=== PATIENT | male | born 1970 | race Caucasian/White ===

== ENCOUNTER 2018-12-17 16:13 | Inpatient (IN) ==
[2018-12-17] MEDS ORDERED: ASPIRIN PO ONE (16:27)
[2018-12-17] MEDS ORDERED: ASPIRIN PR ONE (16:27)
[2018-12-17 16:54] LABS: BASO# 0.02 X1000 (0.0-0.2); BASO% 0.1 % (0.0-0.8); HEMATOCRIT 43.3 % (42.0-52.0); HEMOGLOBIN 15.6 g/dL (14.0-18.0); IMM GRAN# 0.06 X1000 (0.0-0.04); IMM GRAN% 0.3 % (0.0-0.5); LYMPH% 5.4 % (20.5-51.1); MCH 29.7 PG (27-31); MCV 82.5 FL (81-99); MONO# 1.15 X1000 (0.11-0.59); MONO% 6.2 % (1.7-9.3); MPV 9.4 FL (7.4-10.4); PLT 224 X1000 (130-400); RBC 5.25 XMIL (4.7-6.1); RDW 12.2 % (11.5-14.5); WBC 18.63 X1000 (4.8-10.8)
[2018-12-17 17:27] LABS: ALBUMIN 4.5 g/dL (3.5-5.0); CALCIUM 9.2 mg/dL (8.8-10.2); CREATININE 1.5 mg/dL (0.7-1.2); POTASSIUM 4.7 mmol/L (3.5-5.1); TOTAL BILIRUBIN 0.4 mg/dL (0.20-1.00); TOTAL PROTEIN 7.3 g/dL (6.3-8.3)
[2018-12-17 17:42] LABS: CK INDEX 1.3 (0.0-2.5); CK-MB 5.03 ng/mL (0.0-5.0)
[2018-12-17 17:48] LABS: PROTIME 13.7 Seconds (11.0-16.0); PTT 26.4 Seconds (22.3-41.8)
[2018-12-17] MEDS ORDERED: NS 1,000 ML IV ONE (17:52)
--- NOTE | 2018-12-17 17:55 | Diag Imaging Result Doc PS360 ---
EXAM: CHEST-2 VIEWS HISTORY: near syncopy TECHNIQUE: Chest two views COMPARISON: None. FINDINGS: The lungs are well expanded. The heart is not enlarged. The vessels are not distended. There are no infiltrates. No pleural effusions. IMPRESSION: No acute abnormality. Electronically signed by Silvio Iraheta 12/17/2018 5:53 PM
--- NOTE | 2018-12-17 18:33 | EKG Report ---
Test Performed on : 12/17/2018 5:49:41 PM Test Reason : near syncopy Blood Pressure : / mmHG Vent. Rate : 069 BPM Atrial Rate : 069 BPM P-R Int : 136 ms QRS Dur : 092 ms QT Int : 390 ms P-R-T Axes : 049 051 048 degrees QTc Int : 417 ms Normal sinus rhythm. Normal ECG No previous ECGs available Unconfirmed Result
[2018-12-17 18:39] LABS: BILIRUBIN URINE NEGATIVE (NEGATIVE); BLOOD URINE 4+ (NEGATIVE); GLUCOSE URINE NEGATIVE (NEGATIVE); KETONE URINE TRACE mg/dL (NEGATIVE); LEUKOCYTES URINE TRACE (NEGATIVE); NITRITE URINE NEGATIVE (NEGATIVE); PROTEIN URINE TRACE mg/dL (NEGATIVE); SP GRAVITY URINE 1.015; UROBILINOGEN URINE NORMAL
[2018-12-17 18:40] LABS: CLARITY CLEAR (CLEAR); COLOR YELLOW
[2018-12-17 18:55] LABS: URINE WBC <10 /HPF (<10)
[2018-12-17 18:56] LABS: URINE BACTERIA NEGATIVE /HFP; URINE EPITHELIAL CELLS <10 /HPF (<10); URINE SOURCE CLEAN CATCH
[2018-12-17] MEDS ORDERED: AMBIEN PO PRN (19:01)
[2018-12-17] MEDS ORDERED: ZOFRAN IV PRN (19:01)
[2018-12-17 22:09] LABS: CK INDEX 2.2 (0.0-2.5); CK-MB 31.96 ng/mL (0.0-5.0)
--- NOTE | 2018-12-17 23:26 | HISTORY AND PHYSICAL ---
CHIEF COMPLAINT: Syncope. HISTORY OF PRESENT ILLNESS: The patient is a very pleasant 48-year-old male who presented to the emergency department after having a syncopal episode earlier today. He was outside, apparently mowing the yard. His went to check on him and found him lying on the ground. Notes that it took a few seconds to get him to awaken. He was oriented afterwards, but had decreased energy. He was lightheaded. Interestingly, however, he has had 2 episodes in the past month or so at that were similar, although not as severe, the last of which he was at work. He was sitting at his computer, felt a little dizzy and lightheaded. He felt as though he was having difficulty concentrating. He did not lose his balance nor fall out of the chair. ALLERGIES: Penicillin. MEDICATIONS: No current prescription medications. REVIEW OF SYSTEMS: As noted above. Otherwise denies any focal numbness, tingling or weakness in his extremities. Denies any dysuria, frequency, urgency, hesitancy, polyuria or polydipsia. Denies any skin rashes, weight loss or weight gain. Denies any chest pain with the episodes. Denies any loss of bowel or bladder with the episodes. Denies any shaking and jerking with the episodes. PAST MEDICAL HISTORY: No chronic active medical problems. FAMILY HISTORY: Noncontributory. No family history of syncope. SOCIAL HISTORY: The patient is . He is employed. He does not smoke nor drink. PHYSICAL EXAMINATION: VITAL SIGNS: Temperature 98.3 degrees, pulse 69, respiratory rate 18, BP 126/83, saturation 99% on room air. GENERAL: The patient is awake, alert, very pleasant. He is in no distress. HEENT: Normocephalic. NECK: Supple. CARDIOVASCULAR: Regular rate. No murmurs. CHEST: Clear, nonlabored. ABDOMEN: Soft, nondistended, nontender. EXTREMITIES: Moves all extremities. NEUROLOGIC: No focal neurological changes. SKIN: Warm and dry. No rash. LABORATORY DATA: Labs reviewed. EKG normal. ASSESSMENT: Syncopal episode of undetermined origin. PLAN: We will admit the patient to the hospital, place him on telemetry and continue to follow. We will check echocardiogram and carotids. We expect these to be normal. If so, we will discharge him home on Holter monitor. cc: Kodi Leggett MD
[2018-12-18 08:24] LABS: CK INDEX 2.3 (0.0-2.5); CK-MB 59.98 ng/mL (0.0-5.0)
[2018-12-18 08:28] LABS: HEMATOCRIT 42.4 % (42.0-52.0); HEMOGLOBIN 15.2 g/dL (14.0-18.0); MCH 29.7 PG (27-31); MCHC 35.8 g/dL (33-37); MPV 9.9 FL (7.4-10.4); RBC 5.11 XMIL (4.7-6.1); WBC 13.84 X1000 (4.8-10.8)
[2018-12-18 08:29] LABS: RDW 12.4 % (11.5-14.5)
[2018-12-18 08:39] LABS: AGAP 10; ALKALINE PHOSPHATASE 77 U/L (32-122); BUN 21 mg/dL (8-22); CALCIUM 8.7 mg/dL (8.8-10.2); CHLORIDE 106 mmol/L (98-107); COSMO 280; ESTIMATED GFR > 60; GLUCOSE 114 mg/dL (70-104); GOT 72 U/L (10-34); GPT 41 U/L (10-44); SODIUM 138 mmol/L (136-145); TCO2 22 mmol/L (25-35); TOTAL PROTEIN 6.2 g/dL (6.3-8.3)
[2018-12-18 10:09] LABS: HEMATOCRIT 42.4 % (42.0-52.0); HEMOGLOBIN 14.9 g/dL (14.0-18.0); MCH 29.5 PG (27-31); MCHC 35.1 g/dL (33-37); MPV 9.5 FL (7.4-10.4); RBC 5.05 XMIL (4.7-6.1); RDW 12.5 % (11.5-14.5); WBC 10.86 X1000 (4.8-10.8)
[2018-12-18 10:53] LABS: AGAP 9; ALBUMIN 3.9 g/dL (3.5-5.0); ALKALINE PHOSPHATASE 83 U/L (32-122); BUN 19 mg/dL (8-22); CALCIUM 8.6 mg/dL (8.8-10.2); CHLORIDE 106 mmol/L (98-107); COSMO 280; CREATININE 0.9 mg/dL (0.7-1.2); ESTIMATED GFR > 60; GLUCOSE 110 mg/dL (70-104); GOT 84 U/L (10-34); GPT 51 U/L (10-44); POTASSIUM 4.5 mmol/L (3.5-5.1); SODIUM 139 mmol/L (136-145); TCO2 25 mmol/L (25-35); TOTAL PROTEIN 6.6 g/dL (6.3-8.3)
[2018-12-18 11:11] LABS: CK INDEX 2.3 (0.0-2.5); CK-MB 53.29 ng/mL (0.0-5.0)
[2018-12-18] MEDS: SODIUM BICARBONATE 8.4% 150 MEQ in D5W 1,000 ML IV SCH (17:37)
[2018-12-18 18:21] LABS: CK INDEX 2.4 (0.0-2.5); CK-MB 42.09 ng/mL (0.0-5.0)
--- NOTE | 2018-12-18 18:59 | CARDIOLOGY CONSULTATION ---
DATE: 12/18/2018 CONSULTATION REQUESTED BY: Hospitalist service. THE REASON FOR CONSULTATION: Syncope, abnormal CPK. HISTORY: Mr. Meyer is a very pleasant 48-year-old male who was in his usual state of health until yesterday when he decided to do some lawn mowing. As he was mowing the lawn, he found a big heavy log which he decided to pull with both hands and then he apparently fell unconscious. He does not know exactly the time line of how many minutes he may have been out. However, when his came back to the house at about 2 p.m. she found him lying on his back next to the pool and it took her about 5 to 10 minutes to make him regain consciousness after shaking him up vigorously. Upon arrival to the emergency room they did several tests including urine that shows 10 to 20 red blood cells. His CPK was elevated initially 383 units, then it peaked at 2568 units at 3:15 a.m. today and subsequently 2273 units. His index is 2.2 and 2.3%. His troponins, a total of 4, are all negative. ProBNP level is normal. Magnesium is normal. BUN and creatinine were slightly elevated initially 16 and 1.5 on the . Today the they are 19 and 0.9 mg% of which are normal. The patient denies having any chest pain or shortness of breath prior to the incident. He does mention that a couple of occasions a day prior to this incident, he had a moment of what he describes a visual disturbance whereby as he was looking at printed words, half of the words were missing. This had happened also a few days prior to that, lasting for about 2 to 5 minutes each time. He does report the occurrence of "migraine" type of headaches. They usually involve the left side of the head and associated with intense discomfort in the epigastric area and usually go away after vomiting. Those episodes last up to 24 hours and they are not happening too frequently, although stress seems to trigger them. Otherwise, his past medical history is really negative. SURGICAL HISTORY: Negative. FAMILY HISTORY: One sibling appears to have been diagnosed with hypertrophic cardiomyopathy. SOCIAL HISTORY: The patient it not a smoker nor drinker. He is . He has 2 children. The patient has no other issues health choi. He sees Dr. Grant Michael once a year for checkups. The patient works doing a residential painting. MEDICATIONS: He is not taking any prescription medication of the present time. ALLERGIES: He is allergic to penicillin. REVIEW OF SYSTEMS: Other than the aforementioned issues are noncontributory. He does not have exertional dyspnea. No dizziness. No palpitations. No prior syncope or seizures. No prior musculoskeletal issues. He is generally very active and he has basically a moderately intense physical effort on a daily basis doing his job, which he can perform without restrictions. PHYSICAL EXAMINATION: Vital signs: Blood pressure is 109/65, temperature 98 degrees, pulse 63, respirations 18. General: He is awake, alert, oriented, in no distress. HEENT: Unremarkable. Chest: Sounds clear to auscultation and percussion. Heart: Sounds are regular and rhythmic. No gallop or murmur. Abdomen: Nontender, soft. No masses. No hepatomegaly. Extremities: Show good pulses. No peripheral edema. Neurological: Nonfocal. Follows commands. Moves 4 extremities.There are no obvious deficits noted. The patient's 12 lead electrocardiogram is normal and does not suggest the possibility of hypertrophic cardiomyopathy. IMPRESSION: 1.Patient who presented with episode of loss of consciousness lasting longer than anticipated for just a plain syncopal episode. The issue of seizure cannot be ruled out, especially given the elevated CPKs and the fact that it took him a while to regain consciousness. In addition, he has reported migraine headaches and some visual sort of dyslexic type of disturbance. There is concern for the potential central nervous system lesion. In the end, we may just be dealing with "heat stroke" ,although, hyperthermia was not documented on arrival. 2. Question of family history of hypertrophic cardiomyopathy. RECOMMENDATION: At this time, I would suggest to initiate bicarbonate drip to try to lower his CPK values to minimize any nephropathy induced by dye. I would review the echocardiogram that has been done today. If his CPK is reasonably low after infusion of bicarbonate and encouraging him to increase his fluid intake, then we will pursue a CT angiogram of the head and neck to make sure we are not missing any cerebral aneurysm or vascular malformation of the brain type of lesion vs neoplastic lesion. We will follow him along. Thank you for asking us to participate in his evaluation. cc: Brijesh Holguin MD [facility] CENTERClaude
--- NOTE | 2018-12-19 01:18 | ECHO REPORT ---
ORDER DATE: 12/17/2018 MEASUREMENTS: Septal thickness 1.1, left ventricular internal diameter in diastole 4.4, posterior wall thickness 1.1, left ventricular internal diameter in systole 2.7, aortic root 3.0, left atrium 2.8. SUMMARY: 1. Adequate quality study. 2. Aortic valve is trileaflet and opens normally on 2-dimensional images. Peak gradient across aortic valve was approximately 10 mmHg. Mitral, tricuspid, and pulmonic valves are without evidence of structural abnormality with mild tricuspid regurgitation and trace pulmonic insufficiency. Estimated systolic PA pressure by Doppler is 35 to 40 mmHg, suggesting mild pulmonary hypertension. The aortic root is normal in size. 3. Normal left ventricular dimensions demonstrated. Estimated left ejection fraction appears to be at least 65%. No regional wall motion abnormalities can be appreciated. Doppler suggests grade 1 left ventricular diastolic dysfunction. Left atrium, right atrium, and right ventricle are normal in size with grossly preserved right ventricular systolic function. 4. No pericardial effusion. 5. Appearance of inferior vena cava suggests normal central venous pressure. cc: MD Kodi Cartagena MD
[2018-12-19] MEDS: TYLENOL PO PRN ×2 (01:44→08:20)
--- NOTE | 2018-12-19 04:02 | PROGRESS NOTE ---
DATE: 12/18/2018 SUBJECTIVE: Patient notes that he is feeling fine. Denies any current complaints, although patient was witnessed to attempt to do work on his computer and missed several words. OBJECTIVE: Vital Signs: Reviewed. He is afebrile. Heart rate 80s, respiratory rate 20. General: Patient is awake, alert, currently in no distress. HEENT: Normocephalic. Neck: Supple. Cardiovascular: Regular rate. Chest: Clear, nonlabored. Abdomen: Soft. Extremities: Moves all extremities. ASSESSMENT: 1. Syncopal, likely vasovagal. 2. Others. PLAN: We will check CT of the brain and, hopefully, home soon. cc: Kodi Leggett MD
[2018-12-19 07:01] LABS: AGAP 10; BUN 15 mg/dL (8-22); CALCIUM 8.8 mg/dL (8.8-10.2); CHLORIDE 106 mmol/L (98-107); COSMO 281; CREATININE 0.8 mg/dL (0.7-1.2); ESTIMATED GFR > 60; GLUCOSE 112 mg/dL (70-104); POTASSIUM 4.6 mmol/L (3.5-5.1); SODIUM 140 mmol/L (136-145); TCO2 25 mmol/L (25-35)
[2018-12-19 07:06] LABS: MAGNESIUM 1.9 mg/dL (1.5-2.7)
[2018-12-19 07:45] LABS: CK INDEX 2.4 (0.0-2.5); CK-MB 27.85 ng/mL (0.0-5.0)
--- NOTE | 2018-12-19 11:38 | Diag Imaging Result Doc PS360 ---
EXAM: MRI BRAIN W/O CONTRAST HISTORY: syncope headache TECHNIQUE: MRI brain without contrast. Axial, sagittal, and coronal images obtained in multiple sequences COMPARISON: None. FINDINGS: No recent infarct. No microvascular ischemic changes. No mass or midline shift. No hydrocephalus no epidural or subdural fluid collection. No sinus opacification or air-fluid levels. Normal orbits. IMPRESSION: No acute abnormality. Electronically signed by Silvio Iraheta 12/19/2018 11:35 AM
[2018-12-19] MEDS: SODIUM BICARBONATE 8.4% 150 MEQ in D5W 1,000 ML IV SCH (12:08)
--- NOTE | 2018-12-20 00:08 | PROGRESS NOTE ---
DATE: 12/19/2018 SUBJECTIVE: Patient notes that overall he is feeling better. Still tired. Denies any syncopal episodes. PHYSICAL EXAMINATION: Vital Signs: Temperature 97.4 degrees, pulse 51, respiratory 18, BP 127/71. General: Patient is awake, alert, in no distress. HEENT: Normocephalic. Neck: Supple. Cardiovascular: Bradycardia. Chest: Clear and unlabored. Abdomen: Soft, nondistended. Extremities: Moves all extremities. Neurologic: No changes. ASSESSMENT: 1. Syncope. 2. Bradycardia. 3. Rhabdomyolysis. CPK is down to 1000 from a maximum of 2000. PLAN: We will continue patient in the hospital. Continue bicarbonate drip. Recheck CPK in the a.m. We will check an MRI of his brain and follow. cc: Kodi Leggett MD
[2018-12-20] MEDS: SODIUM BICARBONATE 8.4% 150 MEQ in D5W 1,000 ML IV SCH (02:30)
[2018-12-20 05:54] LABS: BASO# 0.02 X1000 (0.0-0.2); BASO% 0.2 % (0.0-0.8); EOS% 1.1 % (0.0-10.0); HEMATOCRIT 45.4 % (42.0-52.0); HEMOGLOBIN 16.1 g/dL (14.0-18.0); IMM GRAN# 0.01 X1000 (0.0-0.04); IMM GRAN% 0.1 % (0.0-0.5); LYMPH# 2.76 X1000 (1.2-3.4); LYMPH% 31.2 % (20.5-51.1); MCH 29.7 PG (27-31); MCHC 35.5 g/dL (33-37); MCV 83.8 FL (81-99); MONO# 0.82 X1000 (0.11-0.59); MONO% 9.3 % (1.7-9.3); MPV 9.5 FL (7.4-10.4); NEUT# 5.13 X1000 (1.4-6.5); NEUT% 58.1 % (42.2-75.2); PLT 225 X1000 (130-400); RBC 5.42 XMIL (4.7-6.1); RDW 12.4 % (11.5-14.5); WBC 8.84 X1000 (4.8-10.8)
[2018-12-20 06:18] LABS: AGAP 9; BUN 16 mg/dL (8-22); CALCIUM 9.1 mg/dL (8.8-10.2); CHLORIDE 103 mmol/L (98-107); CK TOTAL 523 U/L (24-204); COSMO 284; CREATININE 0.9 mg/dL (0.7-1.2); ESTIMATED GFR > 60; GLUCOSE 101 mg/dL (70-104); POTASSIUM 4.5 mmol/L (3.5-5.1); SODIUM 142 mmol/L (136-145); TCO2 31 mmol/L (25-35)
--- NOTE | 2018-12-20 09:20 | Diag Imaging Result Doc PS360 ---
EXAM: CT ANGIOGRAM HEAD/NECK HISTORY: headache/loss of consciousness/focal deficit TECHNIQUE: 1. CT angiogram head with contrast. MIP images obtained. 2. CT angiogram neck with contrast. MIP images obtained. COMPARISON: None. FINDINGS: Angiogram head: Normal filling of each anterior cerebral artery and each middle cerebral artery. Normal flow in the basilar artery and posterior cerebral arteries. No occlusion. No aneurysm identified. Angiogram neck: There is normal flow in the right common carotid artery. No occlusion or stenosis. Normal flow in the right bulb and internal carotid artery. Normal flow in the left common carotid artery. No occlusion or stenosis. Normal flow in the bulb. Normal flow in the left internal carotid artery. Normal flow within each vertebral artery. IMPRESSION: Intrauterine head: No occlusion or aneurysm Angiogram neck: No occlusion or stenosis This exam was performed using automated exposure control, adjustment of mA or kV according to patient size, and/or use of iterative reconstruction technique. Electronically signed by Silvio Iraheta 12/20/2018 9:17 AM
[2018-12-20 11:30] VITALS: BP 128/79
--- NOTE | 2018-12-20 12:20 | EKG Report ---
Test Performed on : 12/20/2018 12:14:12 PM Test Reason : ROUTINE Blood Pressure : / mmHG Vent. Rate : 068 BPM Atrial Rate : 067 BPM P-R Int : 140 ms QRS Dur : 088 ms QT Int : 418 ms P-R-T Axes : 057 056 058 degrees QTc Int : 444 ms Sinus rhythm. with premature atrial complexes. with aberrant conduction. Otherwise normal ECG When compared with ECG of 17-DEC-2018 17:49, (Unconfirmed) aberrant conduction. is now present Confirmed by Luiz Warner MD ([id number]) on 01/10/2019 7:46:46 AM
--- NOTE | 2018-12-21 15:03 | DISCHARGE SUMMARY ---
ADMISSION DATE: 12/17/2018 DISCHARGE DATE: 12/20/2018 DIAGNOSES: 1. Syncope. 2. Bradycardia. 3. Rhabdomyolysis. DIAGNOSTICS: 1. Chest x-ray revealed no acute abnormality. Lungs are well expanded. Heart is not enlarged. Vessels are not distended. There are no infiltrates. 2. Echocardiogram revealed normal left ventricular dimensions with an estimated left ejection fraction at least 65%. No regional wall motion abnormalities can be appreciated. Doppler suggests grade 1 left ventricular diastolic dysfunction. Left atrium, right atrium, right ventricle normal in size with grossly preserved right ventricular systolic function. No pericardial effusion. Appearance of the inferior vena cava suggests normal central venous pressure. 3. Brain MRI reveals no recent infarct. No microvascular ischemic changes. No mass or midline shift. No hydrocephalus. No epidural or subdural fluid collection. No sinus opacification or air-fluid levels. Normal orbits. 4. CT angiogram of the head and neck reveals head reveals no occlusion or aneurysm. Angiogram of the neck reveals no occlusion or stenosis. MICROBIOLOGY: 1. Blood cultures x2 revealed no growth after 48 hours. 2. Urine culture revealed no pathogenic growth. HOSPITAL COURSE: Mr. Meyer presented to the emergency room after having a syncopal episode while outside mowing the yard. His checked on him and found him lying on the ground. It is unsure exactly how long that he was out. He was oriented after his found him. He did report 2 prior episodes similar to this, although not as severe. Each time he was outside working in the heat. Workup as stated above. He was evaluated by Dr. Holguin. After extensive negative workup, it was felt that this was in response to being overheated. He had no further syncopal episodes. No dizzy episodes while in the hospital. He did have an initial total CPK of 383. This slowly humza and peaked at 2568. On the today, he is down to 523. His troponins were negative. He did have episodes of bradycardia in the 50s. These were while he was sleeping, having heart rates 56 to 57. He was asymptomatic at this time. He has been ambulatory with no difficulty walking throughout the night and through this morning. He does state he feels that he is back to his normal status as well as does his family member and thankfully he is ready to be discharged. DISCHARGE VITAL SIGNS: Blood pressure is 128/79, heart rate of 65, respirations 18, temperature is 98 degrees, room air sat 97 to 100. DISCHARGE MEDICATIONS: No prescriptions were given. Patient was instructed to be very diligent on drinking fluids, on hydration and replacing electrolytes especially in the setting of working out in the heat to which he and his did voice understanding. He is being discharged home in stable condition with family members. This is a greater than 30 minute discharge. FOLLOW-UP: 1. Dr. Grant Michael. Discharge nurse will call Sunday and schedule an appointment for the patient to be seen within the next week. At that time he will need a BMP as well as a total CPK rechecked. 2. Dr. Braulio Holguin 01/20/2019 at 11 a.m. 3. He was instructed to call to be seen sooner or return to the ER for any syncope, dizziness, chest pain, palpitations, temperature greater than 101, any nausea, vomiting, diarrhea, constipation, black or bloody vomitus or stools or for any questions or concerns that he may have, any hematuria, dysuria, frequency urgency, any dark urine. He has been discharged home in stable condition with family members. TIME SPENT: This is a greater than 30 minute discharge. Dictated by ADAN Chandra for Kodi Leggett MD cc: ADAN Chandra MD Micah A. Howard, MD
--- NOTE | 2018-12-21 15:46 | DISCHARGE SUMMARY ---
ADMISSION DATE: 12/17/2018 DISCHARGE DATE: 12/20/2018 ADDENDUM: Patient seen and examined by myself. Full note dictated and discussed with nurse practitioner. Patient presented to the hospital with a syncopal episode. In fact, it was his 3rd such episode in the past week. This time, he was found down on the ground outside while mowing the yard. On admission laboratory, he was noted to be in rhabdomyolysis with a CPK at 2000, has actually remained at 2000 despite IV fluids for over 24 hours. He was changed to bicarbonate and continue this for 24 hours before his CPK returned back to normal. He had a CTA of the brain which was negative, MRI of the brain which was negative, echo which was negative. He will follow up outpatient with treatment facility of choice. cc: Kodi Leggett MD
--- NOTE | 2018-12-25 19:43 | ED EKG INTERP ---
This chart was entered by Regina Zaman Scribe, acting as scribe for Mike Marcelino MD. EKG Interpretation - EKG Time of EKG reading by physician:: 17:55 EKG Read and Signed by:: Mike Marcelino EKG Interpretation (*Must complete 3 of following elements*): Normal Rate: 69 Rhythm: nsr [place]: normal QRS: normal CT Interval: normal ST Wave: normal Attestation - Physician/ BENJAMÍN Attestation Patient care was provided by Advanced Practice Provider:: No The physician spent face to face time with patient:: Yes Advanced Practice Provider documentation review:: Supervising physician onsite and consulted in the evaluation and care of this patient. The physician did have a face to face encounter with the patient. This chart was documented by the indicated scribe, (Regina Zaman, Eduin) and accurately reflects the services I performed and decisions made by me, Mike Marcelino MD, as attested by the provider's signature.
--- NOTE | 2018-12-25 19:47 | PROVIDER DOCUMENTATION ---
This chart was entered by Sanjuana Ricketts Scribe, acting as scribe for Mike Marcelino MD. 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 Pt reports he felt dizzy and weak yesterday while working at his computer and then today while mowing grass he had a single episode of syncope with some nausea and SOB upon coming to. Pt denies pain. Pt is A&Ox3 and non-toxic in appearance. If witnessed syncope, by whom?: Prior Episodes: reports: no prior history Onset/Duration: reports: just prior to arrival Timing: reports: resolved prior to arrival Position/Activity at time of episode: reports: activity (mowing grass) Symptoms prior to episode: reports: lightheaded Context: reports: lost consciousness Loss of Consciousness: brief (seconds) Location of injury. (If syncope resulted in an injury.): reports: none Current Symptoms: reports: nausea, weakness, lightheaded Recently Seen Here or By Another Healthcare Provider: No - Dizziness Severity in ED: reports: mild Dizziness Related Current/Associated Symptoms: reports: lightheaded Any recent trauma/injury?: reports: none Modifying Factors: improves with: nothing Patient usually:: reports: walks without assistance Review of Systems - Adult - REVIEW OF SYSTEMS - ADULT Constitutional: reports: see HPI, fatique. denies: chills, fever Eyes: reports: no symptoms reported Ears, Nose, Mouth & Throat: reports: no symptoms reported Cardiovascular: reports: no symptoms reported Respiratory: reports: no symptoms reported Gastrointestinal: reports: no symptoms reported Genitourinary: reports: no symptoms reported Musculoskeletal: reports: no symptoms reported Integumentary: reports: no symptoms reported Neurological: reports: see HPI, dizziness/vertigo, syncope. denies: seizure Psychiatric: reports: no symptoms reported Endocrine: reports: no symptoms reported Hematologic/Lymphatic: reports: no symptoms reported Allergic/Immunologic: reports: no symptoms reported All Other Systems: Reviewed and Negative Past History - Adult - PAST MEDICAL HISTORY-ADULT Review of Records: reports: Nursing Assessment Review, Medications Reviewed, Social history reviewed & non-contributory. Major Childhood Illnesses: reports: denies history Cardiovascular: reports: denies history Respiratory: reports: denies history Gastrointestinal: reports: denies history Obstetrical/Gynecological: reports: denies history Genitourinary: reports: denies history Musculoskeletal: reports: denies history Neurological: reports: denies history Endocrine/Immune: reports: denies history Other Conditions: reports: denies history - IMMUNIZATION STATUS Childhood Immunizations: See Nurse Assessment Flu Vaccine: See Nurse Assessment - FAMILY HISTORY Family History: reviewed, not pertinent - SOCIAL HISTORY Smoking: denies Physical Exam-General - PHYSICAL EXAM-ADULT Initial Vital Signs Reviewed: Yes - CONSTITUTIONAL General Appearance: appears well, alert, no apparent distress. negative: anxious, combative - EYES Eyes: PERRL/EOMI, pink conjunctivae. negative: meningismus, pale conjunctivae, photophobia - HEAD, EARS, NOSE, MOUTH & THROAT HENMT: normocephalic/atraumatic, moist mucous membranes, normal ENT inspection. negative: angioedema, dental decay, hearing deficit - NECK Neck: non-tender, full range of motion, supple, normal inspection. negative: Brudzinski's sign, carotid bruit, C-spine tenderness - RESPIRATORY Respiratory: chest non-tender, lungs clear, normal breath sounds, no pleuratic chest pain, no respiratory distress, no accessory muscle use. negative: crackles, rales, rhonchi, stridor, wheezing - CARDIOVASCULAR Cardiovascular: normal peripheral pulses, regular rate, rhythm, no edema, no gallop, no JVD, no murmur. negative: bradycardia, tachycardia - GASTROINTESTINAL (ABDOMEN) Abdominal Exam: normal bowel sounds, non tender, soft. negative: distended, guarding, rigid, rebound, tenderness - LYMPHATIC Lymphatic: no adenopathy. negative: enlargement, striations, streaking - MUSCULOSKELETAL Back Exam: normal inspection, no CVA tenderness, no vertebral tenderness. negative: swelling Extremity: normal range of motion, non-tender, normal gait, normal inspection, no pedal edema, no calf tenderness, normal capillary refill, pelvis stable. negative: deformity, erythema - SKIN Integumentary: normal color, normal turgor, warm/dry. negative: cyanosis, diaphoresis, erythema, jaundice - NEUROLOGIC Neurologic: youth development professional II-XII nml as tested, grossly normal, no motor/sensory deficits. negative: facial droop, focal weakness - PSYCHIATRIC Psych/Mental Status: normal mood/affect, normal thought content, normal thought process, oriented x 3. negative: disoriented x 3, anxious, disheveled, depressed affect Progress - PLAN OF CARE/RESULTS Result Diagrams: 12/20/18 05:21 12/20/18 05:21 Departure - Departure Date of Disposition Decision: 12/17/18 Time of Disposition Decision: 19:00 DIAGNOSIS: Syncope Disposition: ADMITTED INPATIENT 09 Certified Medical Emergency: Emergent Condition: Serious - Critical Care Note This patient required my direct & personal management of CC.: No Attestation - Physician/ BENJAMÍN Attestation Patient care was provided by Advanced Practice Provider:: No The physician spent face to face time with patient:: Yes Advanced Practice Provider documentation review:: Supervising physician onsite and consulted in the evaluation and care of this patient. The physician did have a face to face encounter with the patient. This chart was documented by the indicated scribe, (Sanjuana Ricketts, Eduin) and accurately reflects the services I performed and decisions made by me, Mike Marcelino MD, as attested by the provider's signature.
== END 2018-12-20 14:00 | disposition home or self-care (01) | DRG 923 ==
LOC: P.ED 16:13 → P.MEDSURG 16:14
PROVIDERS: ATTEND Family Medicine